=== PATIENT | male | born 2000 | race Caucasian/White ===

== ENCOUNTER 2022-06-13 13:21 | Inpatient (IN) | payer BC ==
[2022-06-13 14:08] LABS: #Eosinphils 0.1 thou/uL (0.0-0.7); #Lymphocytes 1.7 thou/uL (1.20-3.40); #Monocytes 1.2 thou/uL (0.11-0.59); #Neutrophils 5.1 thou/uL (1.40-6.50); %Basophils 0.3 % (0.0-1.0); %Eosinophils 0.7 % (0.0-10.0); %Lymphocytes 21.1 % (21.0-51.0); %Monocytes 14.8 % (0.0-10.0); %Neutrophils 63.1 % (42.0-75.0); Hemoglobin 15.2 g/dL (14.0-18.0); Mean Corpuscular HGB CONC 31.4 g/dL (32.0-36.0); Mean Corpuscular Hemoglobin 32.2 pg (27.0-31.0); Mean Platelet Volume 7.8 fL (7.4-10.4); Platelet Count 285 10x3/uL (130-400); RBC Distribution Width 12.5 % (11.5-14.5); Red Blood Cell (RBC) Count 4.72 mill/uL (4.70-6.10); White Blood Cell (WBC) Count 8.1 10x3/uL (4.8-10.8)
[2022-06-13 14:28] LABS: ALT (SGPT) 10 U/L (8-55); AST (SGOT) 12 U/L (5-34); Albumin 3.9 g/dL (3.5-5.0); Alkaline Phosphatase 64 U/L (40-110); Anion Gap 12 mmol/L (10-20); BUN (Urea Nitrogen) 13 mg/dL (8.9-20.6); Bilirubin, Total 0.6 mg/dL (0.2-1.2); Calc. Creatinine Clearance 0 mL/min (70-130); Calcium 9.4 mg/dL (7.8-10.44); Carbon Dioxide 24 mmol/L (22-29); Chloride 108 mmol/L (98-107); Estimated GFR 113; Globulin 3.4 g/dL (2.4-3.5); Glucose 83 mg/dL (70-105); Protein, Total 7.3 g/dL (6.0-8.3); Sodium 140 mmol/L (136-145)
[2022-06-13 15:07] LABS: Bacteria/HPF None Seen HPF (None Seen); Bilirubin Negative (Negative); Blood, Urine 1+ (Negative); Clarity Clear (Clear); Glucose, Urine (Dipstick) Normal (Negative); Ketone, Urine Negative (Negative); Leukocyte Negative Leu/uL (Negative); Nitrite Negative (Negative); Protein, Urine (Dipstick) 20 mg/dL (Neg-Trace); Squamous Epithelial None Seen HPF (0-3); Urobilinogen Normal mg/dL (Less than 2); WBC/HPF 0-3 HPF (0-3)
[2022-06-13] MEDS ORDERED: Piperacillin/Tazobactam 3.375 GM VIAL ONE (15:10)
[2022-06-13 15:20] LABS: Specific Gravity, Urine 1.048 (1.002-1.036)
[2022-06-13] MEDS ORDERED: Iopamidol-370 76% 500 ML MDV (1 ML CHARGE) ONE (15:41)
[2022-06-13] MEDS ORDERED: Fentanyl 250 MCG/5 ML VIAL ONE (18:11)
[2022-06-13] MEDS ORDERED: Bupivacaine HCl 0.5%/Epinephrine 1:200,000/PF 30 ml Vial ONE (18:29)
[2022-06-13] MEDS ORDERED: Rocuronium Bromide 10 MG/ML (10ML VIAL) ONE (19:15)
[2022-06-13] MEDS ORDERED: Ondansetron PF 4 MG/2 ML Vial ONE (19:15)
[2022-06-13] MEDS ORDERED: Lidocaine 1% PF 5 ML VIAL ONE (19:15)
[2022-06-13] MEDS ORDERED: PROPOFOL 200 MG/20 ML VIAL ONE (19:15)
[2022-06-13] MEDS ORDERED: SUGAMMADEX SODIUM 200 MG/2 ML VIAL ONE (19:55)
[2022-06-13] MEDS ORDERED: Morphine 4 MG/ML VIAL SLOW IVP PRN (20:21)
[2022-06-13] MEDS ORDERED: TETANUS, DIPHTHERIA TOX,ADULT (TDVAX) 0.5 ML VIAL IM ONE (20:21)
[2022-06-13] MEDS ORDERED: Ondansetron PF 4 MG/2 ML Vial IVP PRN (20:21)
[2022-06-13] MEDS ORDERED: Ondansetron ODT 4 MG TAB PO PRN (20:21)
[2022-06-13] MEDS ORDERED: Acetaminophen 500 MG TAB PO PRN (20:25)
[2022-06-13] MEDS ORDERED: Acetaminophen 500 MG TAB PO SCH (20:45)
[2022-06-13] MEDS ORDERED: fentaNYL 50 mcg/mL 1 mL Vial ONE (20:52)
[2022-06-13] MEDS ORDERED: Piperacillin/Tazobactam 4.5 GM in Sodium Chloride 0.9% 100 ML IVPB SCH (22:00)
[2022-06-13] MEDS: Piperacillin/Tazobactam 3.375 GM in Sodium Chloride 0.9% 100 ML IVPB SCH (22:22)
[2022-06-13] MEDS: Famotidine 20 MG TAB PO SCH (22:23)
[2022-06-13] MEDS: Ketorolac Tromethamine 30 MG/ML VIAL IVP SCH (22:25)
[2022-06-13] MEDS: Lactated Ringer's 1,000 ML IV SCH (22:26)
[2022-06-13 23:39] VITALS: BMI 26.2
[2022-06-14] MEDS: Piperacillin/Tazobactam 3.375 GM in Sodium Chloride 0.9% 100 ML IVPB SCH ×3 (05:21→20:07)
[2022-06-14] MEDS: Lactated Ringer's 1,000 ML IV SCH ×2 (05:31→14:46)
[2022-06-14 06:48] LABS: Mean Corpuscular HGB CONC 33.1 g/dL (32.0-36.0); Mean Corpuscular Hemoglobin 34.1 pg (27.0-31.0); Mean Platelet Volume 7.8 fL (7.4-10.4); Platelet Count 244 10x3/uL (130-400); RBC Distribution Width 12.6 % (11.5-14.5); Red Blood Cell (RBC) Count 3.82 mill/uL (4.70-6.10)
[2022-06-14 06:49] LABS: Eosinophils 7 % (0-10); Lymphocytes 30 % (21-51); MDiff Complete? YES; Macrocytosis SLIGHT = 6-15 cells (100X) (0-5/hpf); Monocytes 16 % (0-10); Neutrophil 45 % (42-75); Ovalocytes SLIGHT = 2-5 cells (100X) (0-1/hpf); Platelet Morphology Comment Appears Adequate
[2022-06-14] MEDS: traMADol HCl 50 MG TAB PO PRN ×2 (06:50→12:30)
[2022-06-14] MEDS: Ketorolac Tromethamine 30 MG/ML VIAL IVP SCH ×3 (06:51→19:33)
[2022-06-14] MEDS: Famotidine 20 MG TAB PO SCH ×2 (09:52→20:07)
[2022-06-14] MEDS ORDERED: Senokot 8.6 MG TAB PO PRN (20:30)
[2022-06-15] MEDS: Ketorolac Tromethamine 30 MG/ML VIAL IVP SCH ×2 (00:16→04:58)
[2022-06-15] MEDS: Piperacillin/Tazobactam 3.375 GM in Sodium Chloride 0.9% 100 ML IVPB SCH (04:57)
[2022-06-15 08:31] VITALS: BP 118/72; TEMP 98.5
[2022-06-15] MEDS: Famotidine 20 MG TAB PO SCH (08:50)
== END 2022-06-15 11:55 | disposition home or self-care (01) | DRG 339 ==
LOC: ERS 13:21 → SDC/OP 19:01 → SURG B 20:38
PROVIDERS: ADMIT Specialist; ATTEND Specialist
PROC: 0DTJ4ZZ Resection of Appendix, Percutaneous Endoscopic Approach (ICD-10-PCS; principal; 2022-06-13)
DX: K35.33 Acute appendicitis with perforation, localized peritonitis, and gangrene, with abscess (principal); K50.90 Crohn's disease, unspecified, without complications; Z79.899 Other long term (current) drug therapy
CPT/HCPCS: 36415; 74177; 80053; 81003; 81015; 85025; 88304; 96361; 96365; A4649; J1650; J1885; J2405; J2543; J2704; J3010; J3490; J7120; Q9967